=== PATIENT | female | born 1945 | race Caucasian/White ===

== ENCOUNTER → 2017-03-02 | Outpatient (CLI) | payer MEDICARE, BC ==
[~2017-03-02] MED LIST: ALVERT PO; AMBIEN 10MG10 MG PO; AMBIEN 5MG TABLE5 MG PO; AMLODIPINE BESYL5 MG PO; ARMOUR THYROID60 MG PO; ARMOUR THYROID90 MG PO; B COMPLEX & B121 TAB PO; BACTROBAN NASA0.9 GM NS; BENTYL 10MG10 MG/CAP PO; CARAFATE 1GM1 G PO; CIPRO 500MG TA500 MG PO; FASTIN30 MG; FASTIN30 MG PO; FLAX SEED OIL1000 MG PO; FLOVENT DI50 MCG/Act IH; IMITREX100 MG PO; KLONOPIN 0.5MG0.5 MG PO; LEVBID0.375 MG PO; LEVOTHYROXIN0.088 MG PO; LEVSIN0.125 M1 PO; LIORESAL 1010 MG/TAB PO; LIORESAL20 MG PO; LUTEIN + KALE 11 CAP PO; MACRODANTIN100 PO; MACRODANTIN50 MG/CA1 PO; MIRALAX510G PO; NAPROSYN 2250 MG/TAB PO; NASAREL0.025 MG/1 NS; NEURONTIN100 MG/CAP PO; NITROQUICK0.4 MG; NORCO 325 MG-51 TAB PO; NORCO 325 MG-7.1 TAB PO; PHENTERMINE15 MG; PHENTERMINE15 MG PO; PROTONIX 40MG T40 MG PO; REFRESH PLUS 00.4 M1 OU; REMERON 15M15 MG/TA1 PO; RESTASIS0.05% OU; TOPAMAX 25MG25 M1 PO; TOPAMAX25 M1 PO; TOPAMAX50 MG PO; ULTRAM 50MG TAB50 MG PO; VALIUM 2MG T2 MG/TAB PO; VITAMIN B-1000 MCG/T PO; VITAMIN D31000 IU PO; VOLTAREN GEL 1%1 TU TP; XANAX 1MG1 MG PO; ZANAFLEX 4MG TAB4 MG PO; ZETIA 10MG TAB10 MG PO; ZOFRAN 4MG T4 MG/TAB PO; ZOLPIDEM5 MG PO; ZOMIG 2.5MG2.5 MG PO; [UNRECOGNIZED DRUG - OTHER] PO; diclofenac
== END ==
LOC: MC.RAD 14:12
DX: Z12.31 Encounter for screening mammogram for malignant neoplasm of breast (principal)

== ENCOUNTER 2017-04-06 15:38 | Emergency (ER) | payer MEDICARE, BC ==
[~2017-04-06] VITALS: Ht 172.7 cm; Wt 80.9 kg
[~2017-04-06 15:38] MED LIST changes: -VALIUM 2MG T2 MG/TAB PO
[2017-04-06 15:41] VITALS: BP 180/98; PULSE 82; TEMP 98.9
[2017-04-06] MEDS ORDERED: VALIUM 2MG T2 MG/TAB PO (16:55)
== END 2017-04-06 17:06 | disposition home or self-care (01) ==
LOC: COL.ER 15:38
DX: M54.2 Cervicalgia (principal); M62.838 Other muscle spasm; R60.0 Localized edema; Z85.3 Personal history of malignant neoplasm of breast; I34.1 Nonrheumatic mitral (valve) prolapse

== ENCOUNTER 2017-09-14 20:47 | Emergency (ER) | payer MEDICARE, BC ==
[~2017-09-14] VITALS: Ht 172.7 cm; Wt 77.3 kg
[~2017-09-14 20:47] MED LIST changes: +VALIUM 2MG T2 MG/TAB PO
[2017-09-14 20:50] VITALS: TEMP 99.1
[2017-09-14 21:33] LABS: BASO # 0.1 (0.0-0.2); BASO % 0.8 % (0.0-2.0); EOS # 0.1 (0.0-0.7); EOS % 1.1 % (0-4.0); GRAN # 4.6 (1.4-6.5); GRAN % 64.3 % (42.2-75.2); HEMATOCRIT 42.9 % (37.0-47.0); HEMOGLOBIN 14.3 g/dl (12.5-16.0); LYMPH # 1.6 (1.2-3.4); LYMPH % 22.2 % (20.0-51.0); MEAN CELL VOLUME 106 fl (80.0-100.0); MEAN CORPUSCULAR HEMOGLOBIN 35 pg (27.0-31.0); MEAN CORPUSCULAR HGB CONC 33 g/dl (33.0-37.0); MEAN PLATELET VOLUME 10.2 fl (7.4-10.4); MONO # 0.8 (0.1-0.6); MONO % 11.5 % (1.7-9.3); PLATELET COUNT 262 K/mm3 (130-400); RED BLOOD COUNT 4.06 M/mm3 (4.10-5.30); REDCELL DISTRIBUTION WIDTH-CV 12.7 % (11.5-14.5)
[2017-09-14 21:45] LABS: ALANINE AMINOTRANSFERASE 52 U/L (9-52); ALBUMIN 4.6 gm/dL (3.5-5.0); ALKALINE PHOSPHATASE 85 U/L (50-136); ANION GAP 11 mmol/L (7-16); AST,SGOT 29 U/L (15-37); BILIRUBIN,TOTAL 0.5 mg/dL (0.0-1.0); BLOOD UREA NITROGEN 22 mg/dL (7-17); C-REACTIVE PROTEIN 1.9 mg/dL (0.0-0.9); CALCIUM 10.2 mg/dL (8.4-10.2); CARBON DIOXIDE 28 mmol/L (22-30); CHLORIDE 101 mmol/L (98-107); CREATININE, serum 0.62 mg/dL (0.52-1.25); GLUCOSE 123 mg/dL (74-106); SODIUM 139 mmol/L (137-145)
[2017-09-14 21:54] LABS: TROPONIN-I < 0.012 ng/mL (0.000-0.034)
[2017-09-14] MEDS ORDERED: ZOFRAN 4MG T4 MG/TAB PO (23:27)
[2017-09-14] MEDS ORDERED: NORCO 325 MG-51 TAB PO (23:27)
[2017-09-14] MEDS ORDERED: ANTIVERT 25MG25 MG PO (23:27)
[2017-09-14 23:48] VITALS: BP 141/85; PULSE 83
== END 2017-09-14 23:46 | disposition home or self-care (01) ==
LOC: COL.ER 20:47
PROVIDERS: Emergency Medicine
DX: R51 Headache (principal); M54.2 Cervicalgia; R42 Dizziness and giddiness; R11.10 Vomiting, unspecified; I10 Essential (primary) hypertension; G35 Multiple sclerosis; Z85.3 Personal history of malignant neoplasm of breast
CPT/HCPCS: J2270; J2405; J2550; J7030; J7050; Q9967

== ENCOUNTER 2018-04-14 11:15 | Outpatient (RCR) | payer MEDICARE, BC ==
[~2018-04-14 11:15] MED LIST changes: +ANTIVERT 25MG25 MG PO; +MACROBID 1100 MG/CAP PO; -NITROQUICK0.4 MG; +NITROSTAT0.4 MG/TAB SL; +TAMOXIFEN CITRA20 MG PO
== END 2018-04-20 | disposition home or self-care (01) ==
LOC: MKS.ESL.PT
DX: M62.838 Other muscle spasm (principal); G35 Multiple sclerosis
CPT/HCPCS: G8978-GP; G8979-GP

== ENCOUNTER 2018-05-19 13:30 | Outpatient (RCR) | payer MEDICARE, BC | END 2018-05-20 09:52 | disposition home or self-care (01) | LOC: MKS.ESL.PT 13:30 | DX: M62.838 Other muscle spasm (principal); G35 Multiple sclerosis ==

== ENCOUNTER → 2018-10-27 | Outpatient (CLI) | payer MEDICARE, BC | LOC: COL.RAD 08:07 | DX: R10.12 Left upper quadrant pain (principal); Z98.1 Arthrodesis status; Z90.49 Acquired absence of other specified parts of digestive tract; Z90.81 Acquired absence of spleen | CPT/HCPCS: Q9967 ==

== ENCOUNTER 2019-08-22 13:45 | Outpatient (RCR) | payer OTHER | END 2019-08-23 | disposition home or self-care (01) | LOC: MKS.ESL.PT | DX: M62.838 Other muscle spasm (principal) ==

== ENCOUNTER 2020-06-01 08:11 | Outpatient (CLI) | payer MEDICARE ==
[~2020-06-01] VITALS: Ht 172.8 cm; Wt 81.1 kg
[~2020-06-01 08:11] MED LIST changes: -LEVBID0.375 MG PO; +LEVSIN 0.10.125 MG/T PO
[2020-06-01 08:28] VITALS: BP 115/81; PULSE 79; TEMP 98.6
[2020-06-01] MEDS ORDERED: SYNTHROID0.088 MG/T PO (08:41)
[2020-06-01] MEDS ORDERED: PLAVIX 75MG TAB75 MG PO (08:42)
[2020-06-01] MEDS ORDERED: VALIUM 5MG T5 MG/TAB PO ×2 (08:44→08:45)
[2020-06-01] MEDS ORDERED: TOPROL XL 25MG25 MG PO (08:47)
[2020-06-01] MEDS ORDERED: CARAFATE 1GM1 G PO (08:47)
[2020-06-01] MEDS ORDERED: VITAMIN D (08:50)
[2020-06-01] MEDS ORDERED: B-12 500 MCG PO (08:50)
[2020-06-01] MEDS ORDERED: [UNRECOGNIZED DRUG - OTHER] (08:50)
--- NOTE | 2020-06-01 09:58 | NUR ---
I walked pt out to exit at 0945. Pt tolerated procedure well, and verbalized understanding of f/u, dc instructions r/t to site care. no concerns at time of departure. Pt encouraged to call device clinic with any questions or concerns. pt steady on her feet with cane at departure.
== END 2020-06-01 10:01 | disposition home or self-care (01) ==
LOC: COL.CAR 08:11
DX: I47.2 Ventricular tachycardia (principal); M19.90 Unspecified osteoarthritis, unspecified site; E03.9 Hypothyroidism, unspecified; G50.0 Trigeminal neuralgia; G47.33 Obstructive sleep apnea (adult) (pediatric); K58.9 Irritable bowel syndrome, unspecified; G62.9 Polyneuropathy, unspecified; E83.52 Hypercalcemia; R73.9 Hyperglycemia, unspecified; E78.2 Mixed hyperlipidemia; G35 Multiple sclerosis; I10 Essential (primary) hypertension; Z90.49 Acquired absence of other specified parts of digestive tract; Z85.3 Personal history of malignant neoplasm of breast; Z86.010 Personal history of colon polyps; Z85.828 Personal history of other malignant neoplasm of skin; Z90.710 Acquired absence of both cervix and uterus; Z90.11 Acquired absence of right breast and nipple; Z79.02 Long term (current) use of antithrombotics/antiplatelets; Z88.8 Allergy status to other drugs, medicaments and biological substances; Z88.6 Allergy status to analgesic agent; Z91.048 Other nonmedicinal substance allergy status; Z88.2 Allergy status to sulfonamides

== ENCOUNTER → 2020-08-06 | Outpatient (CLI) | payer MEDICARE, BC ==
[~2020-08-06] MED LIST changes: +B-12 500 MCG PO; +PLAVIX 75MG TAB75 MG PO; +SYNTHROID0.088 MG/T PO; +TOPROL XL 25MG25 MG PO; +VALIUM 5MG T5 MG/TAB PO; +VITAMIN D; +[UNRECOGNIZED DRUG - OTHER]
== END ==
LOC: COL.RAD 12:17
DX: M50.30 Other cervical disc degeneration, unspecified cervical region (principal)

== ENCOUNTER 2020-12-17 13:00 | Outpatient (RCR) | payer OTHER ==
[~2020-12-17 13:00] MED LIST changes: +LOPRESSOR 225 MG/TAB PO; -TOPROL XL 25MG25 MG PO
[2020-12-20] MEDS ORDERED: NORVASC2.5 MG PO (21:20)
[2020-12-20] MEDS ORDERED: BENTYL 10MG10 MG/CAP PO ×2 (21:21→23:31)
[2020-12-20] MEDS ORDERED: PRALUENT P75 MG/1 ML SQ (21:22)
[2020-12-20] MEDS ORDERED: B-12 500 MCG PO (21:24)
[2020-12-20] MEDS ORDERED: VITAMIND3 5000 PO (21:26)
[2020-12-20] MEDS ORDERED: [UNRECOGNIZED DRUG - OTHER] OP (21:26)
[2020-12-20] MEDS ORDERED: LIORESAL 1010 MG/TAB PO (23:32)
[2020-12-20] MEDS ORDERED: IMITREX50 MG PO (23:33)
[2020-12-20] MEDS ORDERED: NATURE'S B5000 IU/ML PO (23:34)
[2020-12-20] MEDS ORDERED: PHARMASSURE ZIN50 MG PO (23:37)
[2020-12-20] MEDS ORDERED: CURCUMIN95% PO (23:37)
[2020-12-20] MEDS ORDERED: THE MEDICINE S200 M2 PO (23:38)
[2020-12-20] MEDS ORDERED: ASPIRIN 32325 MG/TAB PO (23:38)
[2020-12-20] MEDS ORDERED: CHOLESTEROL PO (23:39)
[2020-12-20] MEDS ORDERED: magnesium chloride (23:40)
[2020-12-20] MEDS ORDERED: PAIN (23:41)
[2020-12-21] MEDS ORDERED: NORVASC2.5 MG PO (14:48)
== END 2021-01-24 | disposition home or self-care (01) ==
LOC: MKS.ESL.PT
DX: M25.511 Pain in right shoulder (principal)

== ENCOUNTER 2020-12-20 20:59 | Observation (INO) | payer MEDICARE, BC ==
[~2020-12-20] VITALS: Ht 172.7 cm; Wt 71.0 kg
[2020-12-20 21:19] LABS: BASO # 0.1 (0.0-0.2); BASO % 0.8 % (0.0-2.0); EOS # 0.3 (0.0-0.7); EOS % 2.8 % (0-4.0); GRAN # 3.7 (1.4-6.5); GRAN % 40.1 % (42.2-75.2); HEMATOCRIT 43.7 % (37.0-47.0); HEMOGLOBIN 14.4 g/dl (12.5-16.0); LYMPH # 3.9 (1.2-3.4); LYMPH % 41.8 % (20.0-51.0); MEAN CELL VOLUME 106 fl (80.0-100.0); MEAN CORPUSCULAR HEMOGLOBIN 35 pg (27.0-31.0); MEAN CORPUSCULAR HGB CONC 33 g/dl (33.0-37.0); MEAN PLATELET VOLUME 10.4 fl (7.4-10.4); MONO # 1.3 (0.1-0.6); MONO % 14.3 % (1.7-9.3); PLATELET COUNT 286 K/mm3 (130-400); RED BLOOD COUNT 4.11 M/mm3 (4.10-5.30); REDCELL DISTRIBUTION WIDTH-CV 13.8 % (11.5-14.5)
[2020-12-20] MEDS ORDERED: NORVASC2.5 MG PO (21:20)
[2020-12-20] MEDS ORDERED: BENTYL 10MG10 MG/CAP PO ×2 (21:21→23:31)
[2020-12-20] MEDS ORDERED: PRALUENT P75 MG/1 ML SQ (21:22)
[2020-12-20] MEDS ORDERED: B-12 500 MCG PO (21:24)
[2020-12-20] MEDS ORDERED: VITAMIND3 5000 PO (21:26)
[2020-12-20] MEDS ORDERED: [UNRECOGNIZED DRUG - OTHER] OP (21:26)
[2020-12-20 21:28] LABS: ALANINE AMINOTRANSFERASE 18 U/L (4-34); ALBUMIN 4.4 gm/dL (3.5-5.0); ALKALINE PHOSPHATASE 75 U/L (50-136); ANION GAP 12 mmol/L (7-16); AST,SGOT 28 U/L (15-37); BILIRUBIN,TOTAL 0.2 mg/dL (0.0-1.0); BLOOD UREA NITROGEN 21 mg/dL (7-17); CALCIUM 9.8 mg/dL (8.4-10.2); CARBON DIOXIDE 24 mmol/L (22-30); CHLORIDE 99 mmol/L (98-107); CREATINE KINASE 76 U/L (30-135); CREATININE, serum 0.54 (0.52-1.25); GLUCOSE 94 mg/dL (74-106); LIPASE 119 U/L (23-300); POTASSIUM 3.7 mmol/L (3.4-5.0); SODIUM 135 mmol/L (137-145); TOTAL PROTEIN 8.4 gm/dL (6.4-8.2)
[2020-12-20 21:32] LABS: INR 0.9 (0.8-3.0); PROTHROMBIN TIME 10.5 SECONDS (9.7-12.8)
[2020-12-20 21:42] LABS: TROPONIN-I < 0.012 ng/mL (0.000-0.035)
[2020-12-20] MEDS ORDERED: LIORESAL 1010 MG/TAB PO (23:32)
[2020-12-20] MEDS ORDERED: IMITREX50 MG PO (23:33)
[2020-12-20] MEDS ORDERED: NATURE'S B5000 IU/ML PO (23:34)
[2020-12-20] MEDS ORDERED: CURCUMIN95% PO (23:37)
[2020-12-20] MEDS ORDERED: PHARMASSURE ZIN50 MG PO (23:37)
[2020-12-20] MEDS ORDERED: ASPIRIN 32325 MG/TAB PO (23:38)
[2020-12-20] MEDS ORDERED: THE MEDICINE S200 M2 PO (23:38)
[2020-12-20] MEDS ORDERED: CHOLESTEROL PO (23:39)
[2020-12-20] MEDS ORDERED: magnesium chloride (23:40)
[2020-12-20] MEDS ORDERED: PAIN (23:41)
[2020-12-21] VITALS (13 sets, daily range): BP systolic 117–149; BP diastolic 64–77; PULSE 63–81; TEMP 97.9–98.3
--- NOTE | 2020-12-21 01:00 | NUR ---
Received patient via wheelchair from ED. She is alert and oriented. With INT on left AC. She is on right arm restriction. She denies chest pain at this time. She do self straight cath and she has supplies with her. Informed patient she's on NPO. Informed her regarding heparin drip and lab works. She is on room air. Call light within reach.
[2020-12-21 01:38] LABS: COLLECTION METHOD CLEAN CATCH
[2020-12-21 01:45] LABS: PH 5 (5-8); SQUAMOUS EPITHELIAL 0-2 /hpf; URINE APPEARANCE Clear; URINE BACTERIA None Seen /hpf; URINE BILIRUBIN Negative (NEGATIVE); URINE BLOOD Negative (NEGATIVE); URINE COLOR Yellow; URINE GLUCOSE Negative (NEGATIVE); URINE KETONE 2+ (NEGATIVE); URINE LEUKOCYTE ESTERASE Negative (NEGATIVE); URINE NITRATE Negative (NEGATIVE); URINE PROTEIN(semi-quant) Negative (NEGATIVE); URINE RBC 0-2 /hpf; URINE UROBILINOGEN Negative (NEGATIVE)
--- NOTE | 2020-12-21 06:35 | NUR ---
PAtient denies chest pain. She states she wasn't able to sleep. No other needs noted.
[2020-12-21 07:52] LABS: CHOLESTEROL 269 mg/dL (120-200); CHOLESTEROL RISK RATIO 4.9; HDL CHOLESTEROL 54 mg/dL; LDL CHOLESTEROL 201 mg/dL; TRIGLYCERIDE 72 mg/dL
[2020-12-21 07:55] LABS: BASO # 0.1 (0.0-0.2); BASO % 1.2 % (0.0-2.0); EOS # 0.2 (0.0-0.7); EOS % 3.5 % (0-4.0); GRAN # 2.6 (1.4-6.5); GRAN % 43.7 % (42.2-75.2); HEMATOCRIT 39.4 % (37.0-47.0); HEMOGLOBIN 13.1 g/dl (12.5-16.0); LYMPH # 2.1 (1.2-3.4); LYMPH % 35.2 % (20.0-51.0); MEAN CELL VOLUME 105 fl (80.0-100.0); MEAN CORPUSCULAR HEMOGLOBIN 35 pg (27.0-31.0); MEAN CORPUSCULAR HGB CONC 33 g/dl (33.0-37.0); MEAN PLATELET VOLUME 10.6 fl (7.4-10.4); MONO % 15.9 % (1.7-9.3); PLATELET COUNT 264 K/mm3 (130-400); RED BLOOD COUNT 3.74 M/mm3 (4.10-5.30); REDCELL DISTRIBUTION WIDTH-CV 13.7 % (11.5-14.5)
[2020-12-21 08:15] LABS: TROPONIN-I < 0.012 ng/mL (0.000-0.035)
--- NOTE | 2020-12-21 09:01 | NUR ---
Patient alert and oriented, answers questions appropriately. See assessment. Heart tones strong and even, no c/o chest pain or pressure. C/o headache, likely r/t to nitro paste. Heparin gtt infusing. Currently NPO for scheduled test. No other c/o at this time.
[2020-12-21 10:51] LABS: CALCIUM 9.4 mg/dL (8.4-10.2); CREATININE, serum 0.49 (0.52-1.25); INR 1.1 (0.8-3.0); POTASSIUM 3.7 mmol/L (3.4-5.0); PROTHROMBIN TIME 11.9 SECONDS (9.7-12.8)
[2020-12-21 10:54] LABS: PARTIAL THROMBOPLASTIN TIME 67.1 SECONDS (26.0-37.0)
--- NOTE | 2020-12-21 11:15 | NUR ---
Patient to orthodontic laboratory technician with orthodontic laboratory technician staff at 1115.
--- NOTE | 2020-12-21 14:08 | NUR ---
[facility] nurse was assisted with [id number] patient care by [employer] [facility] Ministerio Alarcon and [employer] instructor Jeanna Gloria MSN, RN.
[2020-12-21] MEDS ORDERED: NORVASC2.5 MG PO (14:48)
--- NOTE | 2020-12-21 15:10 | NUR ---
Order Processing Manager met with patient to discuss discharge planning. Patient lives alone in [place] and sees Dr. Boyd for primary care. Patient obtains medications from [facility] with no difficulties. Patient has a cane and four wheeled walker. Patient reports she uses the walker while she cooks so she can sit. Patient reports independence with ADLS and plans to return home upon discharge. Patient does not have DPOA-HC and is not interested in designating anyone at this time. Patient is not and has one living child, Bryce (ph#[phone]). SW collaborated with [employer]NS[employer] who advised patient has been independent in her room. Discharge Plan: Home
--- NOTE | 2020-12-21 15:19 | NUR ---
Attempted to release 5ml air out of right radial band, puncture site started to bleed, 5ml air reinflated into band. Will attempt to release air again in approx 15 minutes.
--- NOTE | 2020-12-21 15:49 | NUR ---
2ml air released from right radial wrist band
--- NOTE | 2020-12-21 17:24 | NUR ---
5ML OF AIR RELEASED FROM RIGHT RADIAL SITE AT 1615. NO ACTIVE BLEEDING NOTED. GAUZE AND BAND AID PLACED. DISCHARGE INSTRUCTIONS REVIEWED WITH PATIENT. DISCHARGED AMBULATORY TO AUTO/HOME AT 1720.
== END 2020-12-21 17:20 | disposition home or self-care (01) ==
LOC: COL.ER 20:59 → MEDICAL 23:44
PROVIDERS: Emergency Medicine; Nurse Practitioner Family; ADMIT Hospitalist
DX: I20.0 Unstable angina (principal); I10 Essential (primary) hypertension; I34.1 Nonrheumatic mitral (valve) prolapse; G35 Multiple sclerosis; G24.9 Dystonia, unspecified; G62.0 Drug-induced polyneuropathy; G47.30 Sleep apnea, unspecified; T45.1X5A Adverse effect of antineoplastic and immunosuppressive drugs, initial encounter; E78.5 Hyperlipidemia, unspecified; E03.9 Hypothyroidism, unspecified; N31.9 Neuromuscular dysfunction of bladder, unspecified; K52.9 Noninfective gastroenteritis and colitis, unspecified; G43.909 Migraine, unspecified, not intractable, without status migrainosus; Z90.710 Acquired absence of both cervix and uterus; Z79.890 Hormone replacement therapy; Z91.048 Other nonmedicinal substance allergy status; Z88.8 Allergy status to other drugs, medicaments and biological substances; Z95.818 Presence of other cardiac implants and grafts; Z85.3 Personal history of malignant neoplasm of breast; Z92.3 Personal history of irradiation; Z92.21 Personal history of antineoplastic chemotherapy; Z79.82 Long term (current) use of aspirin; Z86.73 Personal history of transient ischemic attack (TIA), and cerebral infarction without residual deficits; Z85.828 Personal history of other malignant neoplasm of skin; Z88.2 Allergy status to sulfonamides
CPT/HCPCS: G0378; J1644; J2250; J3010; J7030

== ENCOUNTER 2021-01-04 11:00 | Outpatient (RCR) | payer MEDICARE, BC ==
[~2021-01-04 11:00] MED LIST changes: +ASPIRIN 32325 MG/TAB PO; +CHOLESTEROL PO; +CURCUMIN95% PO; +IMITREX50 MG PO; +NATURE'S B5000 IU/ML PO; +NORVASC2.5 MG PO; +PAIN; +PHARMASSURE ZIN50 MG PO; +PRALUENT P75 MG/1 ML SQ; +THE MEDICINE S200 M2 PO; +VITAMIND3 5000 PO; +[UNRECOGNIZED DRUG - OTHER] OP; +magnesium chloride
== END 2021-03-14 | disposition home or self-care (01) ==
LOC: MKS.ESL.PT
DX: G62.9 Polyneuropathy, unspecified (principal)

== ENCOUNTER 2021-01-04 11:00 | Outpatient (RCR) | payer MEDICARE, BC | END 2021-03-14 | disposition still patient (30) | LOC: MKS.ESL.PT | DX: G62.9 Polyneuropathy, unspecified (principal) ==

== ENCOUNTER 2021-01-26 09:38 | Emergency (ER) | payer MEDICARE, BC ==
[~2021-01-26] VITALS: Ht 172.7 cm; Wt 69.5 kg
[2021-01-26 10:18] LABS: BASO # 0.1 (0.0-0.2); BASO % 1.1 % (0.0-2.0); EOS # 0.2 (0.0-0.7); EOS % 3.6 % (0-4.0); GRAN # 2.6 (1.4-6.5); GRAN % 40.8 % (42.2-75.2); HEMOGLOBIN 14.7 g/dl (12.5-16.0); LYMPH # 2.4 (1.2-3.4); LYMPH % 37.6 % (20.0-51.0); MEAN CELL VOLUME 105 fl (80.0-100.0); MEAN CORPUSCULAR HEMOGLOBIN 35 pg (27.0-31.0); MEAN CORPUSCULAR HGB CONC 33 g/dl (33.0-37.0); MEAN PLATELET VOLUME 11.2 fl (7.4-10.4); MONO # 1.1 (0.1-0.6); MONO % 16.6 % (1.7-9.3); PLATELET COUNT 285 K/mm3 (130-400); REDCELL DISTRIBUTION WIDTH-CV 13.8 % (11.5-14.5)
[2021-01-26 10:25] LABS: PROTHROMBIN TIME 10.6 SECONDS (9.7-12.8)
[2021-01-26 10:30] LABS: ALANINE AMINOTRANSFERASE 17 U/L (4-34); ALBUMIN 4.3 gm/dL (3.5-5.0); ALKALINE PHOSPHATASE 64 U/L (50-136); ANION GAP 9 mmol/L (7-16); AST,SGOT 26 U/L (15-37); BILIRUBIN,TOTAL 0.6 mg/dL (0.0-1.0); BLOOD UREA NITROGEN 15 mg/dL (7-17); C-REACTIVE PROTEIN < 0.5 mg/dL (0.0-0.9); CALCIUM 9.6 mg/dL (8.4-10.2); CARBON DIOXIDE 24 mmol/L (22-30); CHLORIDE 103 mmol/L (98-107); CREATININE, serum 0.52 (0.52-1.25); GLUCOSE 100 mg/dL (74-106); SODIUM 137 mmol/L (137-145); TOTAL PROTEIN 7.8 gm/dL (6.4-8.2)
[2021-01-26 12:07] VITALS: BP 145/77; PULSE 66
== END 2021-01-26 12:09 | disposition home or self-care (01) ==
LOC: COL.ER 09:38
PROVIDERS: Family Medicine
DX: G45.9 Transient cerebral ischemic attack, unspecified (principal); I10 Essential (primary) hypertension; E03.9 Hypothyroidism, unspecified; E78.5 Hyperlipidemia, unspecified; G20 Parkinson's disease; G43.909 Migraine, unspecified, not intractable, without status migrainosus; Z79.82 Long term (current) use of aspirin; Z88.8 Allergy status to other drugs, medicaments and biological substances; Z88.2 Allergy status to sulfonamides; Z79.899 Other long term (current) drug therapy; Z79.890 Hormone replacement therapy; Z86.73 Personal history of transient ischemic attack (TIA), and cerebral infarction without residual deficits
CPT/HCPCS: Q9967

== ENCOUNTER 2021-07-18 13:07 | Emergency (ER) | payer MEDICARE, BC ==
[~2021-07-18] VITALS: Ht 172.7 cm; Wt 67.7 kg
[2021-07-18 14:24] LABS: BASO # 0.1 K/mm3 (0.0-0.2); BASO % 0.9 % (0.0-2.0); EOS # 0.2 K/mm3 (0.0-0.7); EOS % 2.6 % (0-4.0); GRAN # 3.7 K/mm3 (1.4-6.5); GRAN % 56.6 % (42.2-75.2); HEMATOCRIT 42.8 % (37.0-47.0); HEMOGLOBIN 14.6 g/dl (12.5-16.0); LYMPH # 1.8 K/mm3 (1.2-3.4); LYMPH % 27.7 % (20.0-51.0); MEAN CELL VOLUME 102 fl (80.0-100.0); MEAN CORPUSCULAR HEMOGLOBIN 35 pg (27.0-31.0); MEAN CORPUSCULAR HGB CONC 34 g/dl (33.0-37.0); MEAN PLATELET VOLUME 10.9 fl (7.4-10.4); MONO # 0.8 K/mm3 (0.1-0.6); MONO % 11.6 % (1.7-9.3); PLATELET COUNT 257 K/mm3 (130-400); RED BLOOD COUNT 4.18 M/mm3 (4.10-5.30)
[2021-07-18 14:35] LABS: INR 1.1 (0.8-3.0); PROTHROMBIN TIME 11.7 SECONDS (9.7-12.8)
[2021-07-18 14:45] LABS: ALANINE AMINOTRANSFERASE 20 U/L (0-55); ALBUMIN 3.8 gm/dL (3.4-4.8); ALKALINE PHOSPHATASE 68 U/L (40-150); ANION GAP 11 mmol/L (7-16); AST,SGOT 23 U/L (5-34); BILIRUBIN,TOTAL 0.4 mg/dL (0.2-1.2); BLOOD UREA NITROGEN 28 mg/dL (10-20); CALCIUM 9.5 mg/dL (8.4-10.2); CARBON DIOXIDE 22 mmol/L (23-31); CHLORIDE 105 mmol/L (98-107); CREATININE, serum 0.73 mg/dL (0.57-1.11); GLUCOSE 107 mg/dL (70-99); POTASSIUM 4.5 mmol/L (3.5-4.5); SODIUM 138 mmol/L (136-145); TOTAL PROTEIN 7.2 gm/dL (6.2-8.1)
[2021-07-18 15:10] LABS: TROPONIN-I < 0.010 ng/mL (0.00-0.033)
[2021-07-18 16:45] VITALS: BP 138/64; PULSE 72; TEMP 98.1
== END 2021-07-18 16:51 | disposition home or self-care (01) ==
LOC: COL.ER 13:07
PROVIDERS: Emergency Medicine
DX: S05.11XA Contusion of eyeball and orbital tissues, right eye, initial encounter (principal); I10 Essential (primary) hypertension; E78.5 Hyperlipidemia, unspecified; E03.9 Hypothyroidism, unspecified; G35 Multiple sclerosis; G43.909 Migraine, unspecified, not intractable, without status migrainosus; Z79.899 Other long term (current) drug therapy; Z79.890 Hormone replacement therapy; W19.XXXA Unspecified fall, initial encounter; W22.8XXA Striking against or struck by other objects, initial encounter; Y93.01 Activity, walking, marching and hiking
CPT/HCPCS: J7040

== ENCOUNTER → 2022-02-17 | Outpatient (CLI) | payer MEDICARE, BC | LOC: COL.RAD 11:11 | DX: G31.9 Degenerative disease of nervous system, unspecified (principal); Z86.73 Personal history of transient ischemic attack (TIA), and cerebral infarction without residual deficits ==

== ENCOUNTER 2024-03-11 08:30 | Outpatient (RCR) | payer MEDICARE, OTHER | END 2024-03-13 | disposition home or self-care (01) | LOC: WSST | DX: R13.12 Dysphagia, oropharyngeal phase (principal) ==

== ENCOUNTER 2024-04-05 13:00 | Outpatient (RCR) | payer MEDICARE, OTHER | END 2024-04-13 | disposition home or self-care (01) | LOC: WSST | DX: R13.12 Dysphagia, oropharyngeal phase (principal) ==

== ENCOUNTER 2024-04-22 10:31 | Day surgery (SDC) | payer MEDICARE, OTHER ==
[~2024-04-22] VITALS: Ht 172.7 cm; Wt 73.2 kg
[~2024-04-22 10:31] MED LIST changes: +LR 1,000 ML IV SCH; +Ondansetron 4 MG/2 ML VIAL IV PRN
[2024-04-22] MEDS ORDERED: Lidocaine PF 2% (20 MG/ML) 5 ML VIAL ONE (11:53)
[2024-04-22 11:57] VITALS: BP 153/79; PULSE 77; TEMP 97.4
--- NOTE | 2024-04-22 12:00 | NUR ---
Patient alert, oriented x4. Uses electric scooter for assistance with ambulation. Is able to walk with cane short distances. Admission assessments complete. Medications, pharmacy,and allergies confirmed. 22G IV inserted into LFA, LR infusing without difficulties. RUE restricted, pink band applied. Oriented to room and call light system.
[2024-04-22 12:36] VITALS: BP 132/73; PULSE 83
[2024-04-22 12:46] VITALS: BP 118/76; PULSE 84
[2024-04-22 12:48] VITALS: BP 135/76; PULSE 80
--- NOTE | 2024-04-22 13:10 | NUR ---
1236 pt arrives via cart to bay#8. pt is sba to recliner, awake and alert. denies pain, nausea or dysphagia. 1245 pt given snack and tolerated it well. 1247 dr into see pt. questions answered. 1309 dc instructions given to pt and family. question invited and answered. 1315 pt dresses herself
== END 2024-04-22 13:19 | disposition home or self-care (01) ==
LOC: SDCO 10:31
DX: K29.70 Gastritis, unspecified, without bleeding (principal); K21.00 Gastro-esophageal reflux disease with esophagitis, without bleeding; K22.89 Other specified disease of esophagus; Z79.899 Other long term (current) drug therapy
CPT/HCPCS: J2704; J7120